=== PATIENT | male | born 1975 | race American Indian/Alaskan Native ===

== ENCOUNTER 2019-11-05 07:35 | Emergency (ER) | payer SELFPAY ==
[2019-11-05 07:41] VITALS: BP 136/89
[2019-11-05] MEDS ORDERED: dexAMETHasone 20 MG/5 ML VIAL IV ONE (08:26)
[2019-11-05] MEDS ORDERED: KETOROLAC 30 MG/1 ML INJ IV ONE (08:26)
[2019-11-05 08:55] LABS: Basophils # (Auto) 0.1 K/mm3 (0.0-0.1); Basophils % (Auto) 0.5 % (0.0-1.8); Eosinophils # (Auto) 0.2 K/mm3 (0.0-0.4); Eosinophils % (Auto) 1.5 % (0.0-4.3); Hematocrit 36.9 % (35.5-45.6); Hemoglobin 12.4 gm/dl (11.8-15.2); Lymphocytes # (Auto) 1.3 K/mm3 (1.2-5.4); Lymphocytes % (Auto) 12.8 % (13.4-35.0); Mean Corpuscular HGB Conc 34 % (32-34); Mean Corpuscular Volume 90 fl (84-94); Monocytes # (Auto) 0.9 K/mm3 (0.0-0.8); Platelet Count 254 K/mm3 (140-440); Red Cell Distribution Width 12.1 % (13.2-15.2)
[2019-11-05] MEDS ORDERED: CLINDAMYCIN 300 MG/50 mL 300 MG/50 ML BAG IV ONE (09:00)
[2019-11-05 09:01] LABS: BUN/Creatinine Ratio 14; Blood Urea Nitrogen 14 mg/dL (9-20); Calcium 9.1 mg/dL (8.4-10.2); Hemolysis Index 2
--- NOTE | 2019-11-05 10:16 | Emergency Department Report ---
ED ENT HPI - General Chief complaint: Sore Throat Stated complaint: SORE THROAT Time Seen by Provider: 11/05/19 08:25 Source: patient Mode of arrival: Ambulatory Limitations: No Limitations - History of Present Illness Initial comments: 44-year-old -N[place]ien male presents to the emergency room for sore throat going on for 3 days. Patient states that it feels like it swollen having difficulty swallowing. Patient denies any trouble breathing, no headache, no nausea vomiting or fever or chills. Patient denies any abdominal pain or cough. Patient reports no past medical history currently takes no medications on a daily basis and has no known drug allergies. MD complaint: sore throat - Related Data Previous Rx's Medication Instructions Recorded Last Taken Type Amoxicillin/K Clav Tab [Augmentin 1 tab PO Q12HR 10 Days #20 tab 11/05/19 Unknown Rx 875 mg] Ibuprofen [Motrin 600 MG tab] 600 mg PO Q8H PRN #21 tablet 11/05/19 Unknown Rx Allergies Allergy/AdvReac Type Severity Reaction Status Date / Time No Known Allergies Allergy Unverified 11/05/19 07:37 ED Dental HPI - General Chief complaint: Sore Throat Stated complaint: SORE THROAT Time Seen by Provider: 11/05/19 08:25 Source: patient Mode of arrival: Ambulatory Limitations: No Limitations - Related Data Previous Rx's Medication Instructions Recorded Last Taken Type Amoxicillin/K Clav Tab [Augmentin 1 tab PO Q12HR 10 Days #20 tab 11/05/19 Unknown Rx 875 mg] Ibuprofen [Motrin 600 MG tab] 600 mg PO Q8H PRN #21 tablet 11/05/19 Unknown Rx Allergies Allergy/AdvReac Type Severity Reaction Status Date / Time No Known Allergies Allergy Unverified 11/05/19 07:37 ED Review of Systems ROS: Stated complaint: SORE THROAT Other details as noted in HPI ED Past Medical Hx - Past Medical History Previous Medical History?: No - Surgical History Past Surgical History?: No - Social History Smoking Status: Current Every Day Smoker Substance Use Type: Alcohol - Medications Home Medications: Home Medications Medication Instructions Recorded Confirmed Last Taken Type Amoxicillin/K Clav Tab [Augmentin 1 tab PO Q12HR 10 Days #20 tab 11/05/19 Unknown Rx 875 mg] Ibuprofen [Motrin 600 MG tab] 600 mg PO Q8H PRN #21 tablet 11/05/19 Unknown Rx ED Physical Exam - General Limitations: No Limitations General appearance: alert, in no apparent distress - Head Head exam: Present: atraumatic, normocephalic - Eye Eye exam: Present: normal appearance - ENT ENT exam: Present: mucous membranes moist - Expanded ENT Exam Expanded Throat exam: Positive: tonsillar erythema, tonsillomegaly, tonsillar exudate - Neck Neck exam: Present: normal inspection, full ROM, lymphadenopathy - Respiratory Respiratory exam: Present: normal lung sounds bilaterally. Absent: respiratory distress - Cardiovascular Cardiovascular Exam: Present: regular rate, normal rhythm. Absent: systolic murmur, diastolic murmur, rubs, gallop - Neurological Exam Neurological exam: Present: alert, oriented X3 - Psychiatric Psychiatric exam: Present: normal affect, normal mood - Skin Skin exam: Present: warm, dry, intact, normal color. Absent: rash ED Course Vital Signs 11/05/19 07:38 Temperature 98.5 F Pulse Rate 104 H Respiratory 20 Rate Blood Pressure 136/89 O2 Sat by Pulse 96 Oximetry ED Medical Decision Making - Lab Data Result diagrams: 11/05/19 08:32 11/05/19 08:32 - Medical Decision Making 44-year-old -N[place]ien male presents to the emergency room for sore throat going on for 3 days. Patient states that it feels like it swollen having d ifficulty swallowing. Patient denies any trouble breathing, no headache, no nausea vomiting or fever or chills. Patient denies any abdominal pain or cough. Patient reports no past medical history currently takes no medications on a daily basis and has no known drug allergies. CBC CMP rapid strep. Patient was given clindamycin 600 mg IV, dexamethasone 10 mg IV and Toradol 15 mg IV. Strep came back positive. CBC BMP is within normal limits. Patient will be sent home on Augmentin 875 p.o. twice daily for 10 days. Patient is instructed to take Tylenol or ibuprofen for pain management. Warm soaks salt gargles. Follow-up with the primary care provider if symptoms persist or gets worse. Return back to the emergency room if any difficulty in breathing. Critical care attestation.: If time is entered above; I have spent that time in minutes in the direct care of this critically ill patient, excluding procedure time. ED Disposition Clinical Impression: Pharyngitis, streptococcal, acute Disposition: DC-01 TO HOME OR SELFCARE Is pt being admited?: No Does the pt Need Aspirin: No Condition: Stable Instructions: Strep Throat (ED) Additional Instructions: Rapid strep came back positive for strep pharyngitis. Complete antibiotics pain medication as needed warm salt gargles. Can get [id number] Cepacol throat lozenges or throat spray. Return to the emergency room if there is any worsening symptoms. Prescriptions: Amoxicillin/K Clav Tab [Augmentin 875 mg] 1 tab PO Q12HR 10 Days #20 tab Ibuprofen [Motrin 600 MG tab] 600 mg PO Q8H PRN #21 tablet PRN Reason: Pain Referrals: PRIMARY CARE, [Primary Care Provider] - 3-5 Days [facility] [Provider Group] - 3-5 Days Forms: Work/School Release Form(ED)
== END 2019-11-05 10:26 | disposition home or self-care (01) ==
LOC: ED 07:35
DX: J02.0 Streptococcal pharyngitis (principal); F17.200 Nicotine dependence, unspecified, uncomplicated
CPT/HCPCS: 36415; 80048; 85025; 87430; 96365; 96375; 99283; J1100; J1885

== ENCOUNTER 2021-10-15 07:35 | Emergency (ER) | payer SELFPAY ==
[2021-10-15 10:11] LABS: Color,Urine Straw (Yellow)
--- NOTE | 2021-10-15 10:15 | XRay Report ---
CHEST 2 VIEWS INDICATION: n/v. COMPARISON: None. FINDINGS: Support devices: None. Heart: Within normal limits. Lungs/Pleura: No acute air space or interstitial disease. No significant pleural effusion. IMPRESSION: No acute findings. Signer Name: Stefan Scott MD Signed: 10/15/2021 10:11 AM Workstation Name: [id number]
--- NOTE | 2021-10-15 11:27 | Cat Scan Report ---
CT HEAD WITHOUT CONTRAST INDICATION / CLINICAL INFORMATION: intermittent confusion. TECHNIQUE: Axial imaging performed from the skull apex through the skull base without the use of cont rast. Sagittal and coronal reformatted images. All CT scans at this location are performed using CT dose reduction for ALARA by means of automated exposure control. COMPARISON: None available. FINDINGS: CEREBRAL PARENCHYMA: There is a large acute intraparenchymal hemorrhage in the posterior left tempora l/parietal region measuring up to 6.0 x 4.7 x 3.6 cm. There is mild surrounding edema. The remaining brain parenchyma is normal density. EXTRA-AXIAL SPACES: Normal in size and morphology for the patient's age. VENTRICULAR SYSTEM: Normal in size and morphology for the patient's age. MIDLINE SHIFT OR HERNIATION: There is mild mass effect/sulcal effacement in the left temporoparietal region surrounding the hemorrhage and mild mass effect on the atrium of the left ventricle but no sig nificant midline shift. CEREBELLUM / BRAINSTEM: No significant abnormality. CALVARIUM: No significant abnormality. ORBITS: Normal as visualized. PARANASAL SINUSES / MASTOID AIR CELLS: Normal as visualized. SOFT TISSUES of HEAD: No significant abnormality. ADDITIONAL FINDINGS: None. IMPRESSION: Acute intraparenchymal hemorrhage in the left temporoparietal region as described above. CRITICAL RESULT: Time of Discovery (DATABASE DBA/CDT): 1016 hours Time of Communication (DATABASE DBA/CDT): 1019 hours Licensed Practitioner Receiving Report: GENEVA Butt Read-Back Performed: Yes. Signer Name: Aram Zhong Jr, MD Signed: 10/15/2021 11:23 AM Workstation Name: [id number]
[2021-10-15 11:38] LABS: Hematocrit 38.6 % (35.5-45.6); Hemoglobin 12.7 gm/dl (11.8-15.2); Mean Corpuscular HGB Conc 33 % (32-34); Mean Corpuscular Volume 86 fl (84-94); Platelet Count 207 K/mm3 (140-440); Red Blood Count 4.49 M/mm3 (3.65-5.03); Red Cell Distribution Width 12.3 % (13.2-15.2)
--- NOTE | 2021-10-15 11:40 | Emergency Department Report ---
ED N/V/D HPI - General Chief complaint: Nausea/Vomiting/Diarrhea Stated complaint: NAUSEA,VOMITING Time Seen by Provider: 10/15/21 09:01 Source: patient, police, EMS Mode of arrival: Stretcher Limitations: Altered Mental Status - History of Present Illness Initial comments: 45-year-old black male with no documented past medical history presents to the e mergency department from the [facility] with complaints of nausea, vomiting, abdominal pain, and altered mental status. Per documentation from the [facility], patient presented to the [facility] 8 to 12 hours ago with symptoms that has gotten progressively worse. Patient has not had fever. MD complaint: nausea, vomiting, abdominal pain, other (Altered mental status) -: hour(s) Associated Abdominal Pain: Yes Location: diffuse Associated Symptoms: denies: chest pain, cough, fever/chills - Related Data Previous Rx's Medication Instructions Recorded Last Taken Type Amoxicillin/K Clav Tab [Augmentin 1 tab PO Q12HR 10 Days #20 tab 11/05/19 Unknown Rx 875 mg] Ibuprofen [Motrin 600 MG tab] 600 mg PO Q8H PRN #21 tablet 11/05/19 Unknown Rx Allergies Allergy/AdvReac Type Severity Reaction Status Date / Time No Known Allergies Allergy Verified 10/15/21 07:46 ED Review of Systems ROS: Stated complaint: NAUSEA,VOMITING Other details as noted in HPI ED Past Medical Hx - Social History Smoking Status: Current Every Day Smoker Substance Use Type: Alcohol - Medications Home Medications: Home Medications Medication Instructions Recorded Confirmed Last Taken Type Amoxicillin/K Clav Tab [Augmentin 1 tab PO Q12HR 10 Days #20 tab 11/05/19 Unknown Rx 875 mg] Ibuprofen [Motrin 600 MG tab] 600 mg PO Q8H PRN #21 tablet 11/05/19 Unknown Rx ED Physical Exam - General Limitations: No Limitations General appearance: alert, in no apparent distress - Head Head exam: Present: atraumatic, normocephalic, normal inspection - Eye Eye exam: Present: normal appearance, PERRL. Absent: conjunctival injection, periorbital swelling, periorbital tenderness Pupils: Present: normal accommodation - ENT ENT exam: Present: normal exam, normal orophraynx - Neck Neck exam: Present: normal inspection, full ROM. Absent: tenderness - Respiratory Respiratory exam: Present: normal lung sounds bilaterally. Absent: respiratory distress, wheezes, rales, rhonchi, stridor, chest wall tenderness - Cardiovascular Cardiovascular Exam: Present: regular rate, normal heart sounds - GI/Abdominal GI/Abdominal exam: Present: soft, normal bowel sounds. Absent: distended, tenderness, guarding, rebound, rigid - Extremities Exam Extremities exam: Present: normal inspection, normal capillary refill. Absent: pedal edema, calf tenderness - Back Exam Back exam: Present: normal inspection. Absent: vertebral tenderness - Neurological Exam Neurological exam: Present: alert - Expanded Neurological Exam Expanded Neurological exam: Absent: other (Garbled speech) Motor strength exam: RUE: 5, LUE: 5, RLE: 5, LLE: 5 Best Eye Response ([place]): (4) open spontaneously Best Motor Response ([place]): (6) obeys commands Best Verbal Response ([place]): (2) incomprehsible sounds Teresa Total: 12 - Psychiatric Psychiatric exam: Present: normal affect - Skin Skin exam: Present: warm, dry, intact ED Course Vital Signs 10/15/21 10/15/21 10/15/21 07:42 07:45 08:00 Temperature 98.2 F Pulse Rate 80 Respiratory 18 Rate Blood Pressure 146/89 146/89 Blood Pressure 146/89 [Left] O2 Sat by Pulse 100 100 99 Oximetry 10/15/21 10/15/21 10/15/21 08:15 08:30 08:46 Temperature Pulse Rate Respiratory Rate Blood Pressure 128/85 128/85 130/94 Blood Pressure [Left] O2 Sat by Pulse 100 100 83 L Oximetry 10/15/21 10/15/21 10/15/21 09:00 09:15 09:30 Temperature Pulse Rate Respiratory Rate Blood Pressure 135/89 125/83 125/83 Blood Pressure [Left] O2 Sat by Pulse 100 100 100 Oximetry 10/15/21 10/15/21 10/15/21 09:45 10:02 10:39 Temperature Pulse Rate Respiratory Rate Blood Pressure 124/82 124/82 109/81 Blood Pressure [Left] O2 Sat by Pulse 100 68 L 95 Oximetry 10/15/21 10/15/21 10/15/21 11:40 11:41 11:42 Temperature Pulse Rate 89 80 Respiratory 21 Rate Blood Pressure 144/90 Blood Pressure 150/97 [Left] O2 Sat by Pulse 100 98 99 Oximetry 10/15/21 10/15/21 10/15/21 11:45 12:01 12:15 Temperature Pulse Rate 80 82 94 H Respiratory 23 20 24 Rate Blood Pressure 145/96 150/95 159/99 Blood Pressure [Left] O2 Sat by Pulse 98 100 99 Oximetry 10/15/21 10/15/21 10/15/21 12:31 12:45 13:01 Temperature Pulse Rate 95 H 84 86 Respiratory 28 H 23 20 Rate Blood Pressure 153/106 163/104 150/94 Blood Pressure [Left] O2 Sat by Pulse 100 95 97 Oximetry 10/15/21 13:15 Temperature Pulse Rate 88 Respiratory 21 Rate Blood Pressure 142/98 Blood Pressure [Left] O2 Sat by Pulse 99 Oximetry - Reevaluation(s) Reevaluation #1: 10/15/21 11:[address] Quispe at [facility] who confirmed that patient presented to [facility] 8 to 12 hours ago with nausea, vomiting, and some altered mental status. He states that patient had intermittent inappropriate speech initially that progressed to persistent garbled speech. He states that there was no report of any trauma or injury to patient prior to presenting to the [facility]. ED Medical Decision Making - Lab Data Result diagrams: 10/15/21 10:27 10/15/21 10:27 - Radiology Data Radiology results: report reviewed, image reviewed CT scan of head and brain without contrast: FINDINGS: CEREBRAL PARENCHYMA: There is a large acute intraparenchymal hemorrhage in the posterior left temporal/parietal region measuring up to 6.0 x 4.7 x 3.6 cm. There is mild surrounding edema. The remaining brain parenchyma is normal density. EXTRA-AXIAL SPACES: Normal in size and morphology for the patient's age. VENTRICULAR SYSTEM: Normal in size and morphology for the patient's age. MIDLINE SHIFT OR HERNIATION: There is mild mass effect/sulcal effacement in the left temporoparietal region surrounding the hemorrhage and mild mass effect on the a trium of the left ventricle but no significant midline shift. CEREBELLUM / BRAINSTEM: No significant abnormality. CALVARIUM: No significant abnormality. ORBITS: Normal as visualized. PARANASAL SINUSES / MASTOID AIR CELLS: Normal as visualized. SOFT TISSUES of HEAD: No significant abnormality. ADDITIONAL FINDINGS: None. IMPRESSION: Acute intraparenchymal hemorrhage in the left temporoparietal region as described above. Chest x-ray: FINDINGS: Support devices: None. Heart: Within normal limits. Lungs/Pleura: No acute air space or interstitial disease. No significant pleural effusion. IMPRESSION: No acute findings. - Medical Decision Making 45-year-old black male with no documented past medical history presents to the emergency department from the [facility] with complaints of nausea, vomiting, abdominal pain, and altered mental status. Per documentation from the [facility], patient presented to the [facility] 8 to 12 hours ago with symptoms that has gotten progressively worse. Patient has not had fever. CT scan of head and brain positive for acute intraparenchymal hemorrhage in the left temporoparietal region. Care of patient taken over by Dr. Marino for [facility] er evaluation and management. Critical care attestation.: If time is entered above; I have spent that time in minutes in the direct care of this critically ill patient, excluding procedure time. ED Disposition Clinical Impression: Acute spontaneous intraparenchymal intracranial hemorrhage Disposition: 02 SHORT [facility] Is pt being admited?: No Condition: Stable ED Altered Mental Status HPI - General Chief Complaint: Nausea/Vomiting/Diarrhea Stated Complaint: NAUSEA,VOMITING Time Seen by Provider: 10/15/21 09:01 Source: patient, police, EMS Mode of arrival: Stretcher Limitations: No Limitations - History of Present Illness MD Complaint: altered mental status -: hour(s) Consistency of Symptoms: getting worse Context: unknown Associated Symptoms: nausea/vomiting. denies: chest pain, cough, fever/chills - Related Data Previous Rx's Medication Instructions Recorded Last Taken Type Amoxicillin/K Clav Tab [Augmentin 1 tab PO Q12HR 10 Days #20 tab 11/05/19 Unknow n Rx 875 mg] Ibuprofen [Motrin 600 MG tab] 600 mg PO Q8H PRN #21 tablet 11/05/19 Unknown Rx Allergies Allergy/AdvReac Type Severity Reaction Status Date / Time No Known Allergies Allergy Verified 10/15/21 07:46
--- NOTE | 2021-10-15 11:43 | Event Note ---
Date: 10/15/21 Of note: Pt was seen/evaluated by RACK ROOM WORKER, Deanna Lopez, in fast track 01:1. See pt's EHR for her documented evaluation and management of the patient. Time Course: 1125am: Charge nurse, Bridgett, informs me that GENEVA Huerta has evaluated the patient in Fast Track. She has just received notification from the radiologist that the pt's head ct demonstrates an acute ICH. Plan will be to transfer pt over to the main ER, room 20 for further management by an ER physician. I informed her that 11:29am: Pt has been transferred to room 20 11:29am: verbal sign out given tome by GENEVA Huerta Exam: I examined the patient independently. GCS is 14, with one-point having been removed for the patient being confused. He is asleep but easily arousable. When asked where he is located, the patient says "2040." Pt is altered but he is protecting his airway. He is moving all extremities spontaneously. Patient asked if he fell or had any head trauma to which he replies "I do not think so but honestly I do not know." Labs: Reviewed. EKG interpreted by me: Ventricular rate 86 bpm. P waves are present and proceed every QRS complex. Intervals normal. No ST segment depressions or elevations. No T wave flattening or inversions. No ectopy. No arrhythmia. Normal axis. Sinus rhythm. Patient has Q waves in anteroseptal leads. He has no prior EKG for both for comparison. ER Course: 11:41am-11:51am: on hold with [facility]. youth coordinator reports multiple times that she cannot find the neurointensivist and neuroslorenzo méndez diamond die polisher. She is actively making multiple calls to find a provider., Final report: there are no neurosurgical beds available. 11:51am: ER church secretary has been asked to telephone [facility] to obtain emergent transfer of the patinet 11:53am-11:57am: [facility] Transfer: youth coordinator has been given verbal report by me. She will call me back once she is able to reach the neurointensivist and critical care physicians diamond die polisher. 11:57am: Reassessment of patient; GCS remains 14 ([id number]); Pt continues to remain confused concerning the location and the datehe is moving all extremities; he c/o a headache and states "it hurts really bad." Patient denies any abdominal pain, stating "it was hurting before but not anymore.". Abdomen evaluated by me and is soft nondistended nontender without guarding or rebound tenderness. Doubtful at this time the patient has an acute intra abdominal process necessitating further work-up at this time. Will give analgesia for headache and reassess 12:07-12:11pm: Return call received from [facility]. I was placed on the line with the neurosurgeon, Dr. nettles, and the neurocritical care doctor, Dr. Mathews. Case was reviewed with them. has agreed to accept the patient to the neurosurgical intensive care unit. He requests that the patient be kept with a systolic bp <160. He also requests that the patient be given Dilaudid and lieu of morphine for pain management, be given 1 g of Keppra IV, and given 1 g/kg of mannitol. 12:57pm: Pt is asleep but easily arousable. Vital signs stable. He is protecting his airway. He states his headache has improved. Patient continues to remain altered however not being able to tell this provider where he is or what today's date is. He is moving all extremities spontaneously. He is not obtunded. A bdomen is soft nondistended nontender without guarding or rebound tenderness. We will continue to monitor. 1:12 PM: EMS/ACLS, is present. They are in the patient's room and attempting to place him on the EMS stretcher for transport to [facility]. I reassessed the patient. Blood pressure is 144/98. The patient is asleep but easily arousable. He is protecting his airway. Vitals are stable. He is moving all extremities spontaneously. He has had no evidence of acute clinical decompensation. 1:27pm: EMS personnel is observed transporting the patient out of the emergency depa rtment. MDM: Critical care: 45minutes of critical care services provided. This was excluding all billable procedures. 45-year-old male, with no known past medical history, brought in from longterm for evaluation of nausea vomiting, and is found on diagnostic imaging today to have an acute large left intraparenchymal hemorrhage. Patient underwent frequent neurochecks by me and has remained clinically stable, protecting his airway. Given that there is no neurosurgery service at this hospital, the plan was to have the patient emergently transferred to a facility that has neurosurgery service. [facility] was initially called and I was subsequently informed that they have no neurosurgical beds available for this patient. [facility] subsequently called and the case was reviewed with the neurosurgeon as well as the critical care aerospace medicine physician, and Dr. Tamez, respectively. The evidence of septic the patient who be transferred and admitted at [facility], neurosurgical intensive care unit. The patient remained hemodynamically stable here. His blood pressure transiently went to a systolic greater than 175 any but by the time the Cardene drip arrived from pharmacy, the patient's blood pressure spontaneously improved with a systolic pressure in the 140s and it remained there. Therefore no antihypertensives were initiated on this patient. Patient transported via [facility] EMS crew to [facility].
[2021-10-15 11:50] LABS: Alanine Aminotransferase 9 units/L (7-56); Albumin 4.7 g/dL (3.9-5); BUN/Creatinine Ratio 10; Blood Urea Nitrogen 13 mg/dL (9-20); Calcium 9.8 mg/dL (8.4-10.2); Hemolysis Index 3
[2021-10-15] MEDS ORDERED: SODIUM CHLORIDE 0.9% 1000 ML 1,000 ML IV ONE (12:00)
[2021-10-15] MEDS ORDERED: MORPHINE 2 MG/1 ML INJ IV ONE (12:00)
[2021-10-15] MEDS ORDERED: ONDANSETRON 4 MG/2 ML INJ IV ONE (12:00)
[2021-10-15] MEDS ORDERED: HYDROmorphone 1 MG/1 ML INJ IV ONE (12:13)
[2021-10-15] MEDS ORDERED: levETIRAcetam 1000 MG/NS 0.75% 1,000 MG/100 ML BAG IV ONE (12:13)
[2021-10-15] MEDS ORDERED: MANNITOL 20% 500 ML IV ONE (12:13)
[2021-10-15] MEDS ORDERED: niCARdipine DRIP 40 MG/200 ML BAG IV ONE (12:46)
[2021-10-15 13:17] LABS: INR 1.01 (0.87-1.13)
[2021-10-15 13:18] LABS: Partial Thromboplastin Time 27.8 Sec. (24.2-36.6)
[2021-10-15 13:22] VITALS: BP 142/98
[2021-10-15 13:37] LABS: RBC,Urine < 1.0 /HPF (0.0-6.0)
[2021-10-15 13:38] LABS: Mucus,Urine 3+ /HPF
--- NOTE | 2021-10-16 10:33 | Electrocardiograph Report ---
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
== END 2021-10-15 13:33 | disposition short-term general hospital (02) ==
LOC: ED 07:35
DX: I61.8 Other nontraumatic intracerebral hemorrhage (principal); F17.200 Nicotine dependence, unspecified, uncomplicated; Z72.89 Other problems related to lifestyle; Z79.899 Other long term (current) drug therapy
CPT/HCPCS: 36415; 70450; 71046; 80053; 81001; 82962; 83690; 84484; 85027; 85610; 85730; 93005; 96361; 96374; 96375; 99285; J1170; J1953; J2150; J2405; J7030